=== PATIENT | female | born 1960 | race Caucasian/White ===

== ENCOUNTER 2017-09-08 01:38 | Inpatient (IN) ==
[2017-09-08] MEDS ORDERED: SODIUM CHLORIDE 0.9% 1,000 ML IV STA (02:11)
[2017-09-08] MEDS ORDERED: ONDANSETRON 4 MG/2 ML VIAL IV STA (02:11)
[2017-09-08] MEDS ORDERED: ONDANSETRON 4 MG/2 ML VIAL ONE (02:15)
[2017-09-08 02:55] LABS: Basophils % 0.2 % (0.0-0.8); Hemoglobin 14.6 GM/DL (12.0-16.0); Immature Granulocytes % 0.7 %; Immature Granulocytes Absolute 0.15 #; Lymphocytes # 1.1 10*3/uL (1.4-4.0); Lymphocytes % 4.7 % (21.3-54.2); Mean Corpuscular HGB Conc 33.2 GM/DL (32-36); Mean Corpuscular Hemoglobin 30 PG (27-34); Mean Corpuscular Volume 89.6 FL (87-102); Monocytes # 1.1 10*3/uL (0.11-0.8); Neutrophils # 20.3 10*3/uL (1.4-7.4); Neutrophils % 89.4 % (38.7-73.9); Platelet Count 242 T/CUMM (130-400); Red Blood Count 4.91 MC/CUMM (3.8-5.5); Red Cell Distribution Width 13.2 % (9.3-17.3); White Blood Count 22.7 T/CUMM (4-12)
[2017-09-08 03:14] LABS: Albumin 3.8 G/DL (3.4-5.0); Bilirubin,Total 0.8 MG/DL (0.2-1.0); Calcium 9.1 MG/DL (8.5-10.1); Osmolality,Calculated 278.7 MOS/KG (273-304); Potassium 3.7 MMOL/L (3.5-5.1); Total Protein 7.1 G/DL (6.4-8.3)
[2017-09-08 04:17] LABS: Band Neutrophils 6 % (0-10); Lymphocytes 8 % (20-55); Segmented Neutrophils 85 % (50-85)
[2017-09-08 04:18] LABS: Platelet Estimate Normal; Total Cells Counted 100
[2017-09-08] MEDS ORDERED: metroNIDAZOLE INJ 500 MG in PREMIX 1 EACH IV STA (04:33)
[2017-09-08] MEDS ORDERED: CIPROFLOXACIN INJ 400 MG in PREMIX 1 EACH IV STA (04:33)
[2017-09-08] MEDS ORDERED: metroNIDAZOLE 500 MG/100 ML PREMIX IV ONE (04:42)
[2017-09-08] MEDS ORDERED: CIPROFLOXACIN 400 MG/200 ML PREMIX IV ONE (04:42)
[2017-09-08 05:25] LABS: Apearance,Urine Slightly Hazy (Clear); Bacteria,Urine Occasional /HPF (Few); Blood, Urine Moderate mg/dL (Negative); Glucose,Urine (UA) Negative (Negative); Hyaline Casts,Urine 4 /LPF (0-3); Ketones,Urine 5 mg/dL (Negative); Mucus,Urine Occasional /LPF (Occasional); Nitrite,Urine Negative (Negative); Protein,Urine Negative; RBC,Urine 36 /HPF (0-4); Squamous Epithelial Cell,Urine Few /HPF (0-10); Urine Color Amber (Yellow); Urine Specific Gravity 1.019 (1.001-1.035); WBC,Urine 1 /HPF (0-6)
[2017-09-08 05:26] LABS: Bilirubin,Urine Small mg/dL (Negative)
[2017-09-08] MEDS ORDERED: ACETAMINOPHEN 325 MG TABLET PO PRN (05:44)
[2017-09-08] MEDS ORDERED: ONDANSETRON 4 MG/2 ML VIAL IV PRN (05:44)
[2017-09-08] MEDS: SODIUM CHLORIDE 0.9% 1,000 ML IV SCH ×2 (06:41→18:45)
[2017-09-08] MEDS: DOCUSATE SODIUM 100 MG CAPSULE PO SCH ×2 (08:44→20:16)
[2017-09-08] MEDS: LEVOTHYROXINE 50 MCG TABLET PO SCH (08:44)
[2017-09-08] MEDS: PANTOPRAZOLE 40 MG TABLET PO SCH (08:44)
[2017-09-08] MEDS ORDERED: HYOSCYAMINE 0.125 MG TABLET PO ONE (09:00)
[2017-09-08] MEDS: CETIRIZINE 10 MG TABLET PO SCH (09:28)
[2017-09-08] MEDS: AZELASTINE NASAL 137 MCG/SPRAY 30 ML BOTTLE BOTH NARES SCH ×2 (10:56→20:16)
[2017-09-08] MEDS: PIPERACILLIN/TAZOBACTAM 3,375 MG in SODIUM CHLORIDE 0.9% 100 ML IV SCH ×2 (10:56→18:46)
[2017-09-08] MEDS ORDERED: LOPERAMIDE 2 MG CAPSULE PO PRN (12:39)
[2017-09-08] MEDS: LACTOBACILLUS ACIDOPHILUS/BULGARICUS CAPLET PO SCH (13:40)
[2017-09-08] MEDS ORDERED: FLUoxetine 10 MG CAPSULE PO SCH (21:00)
[2017-09-08] MEDS ORDERED: SPRINTEC PO SCH (21:00)
[2017-09-09] MEDS: PIPERACILLIN/TAZOBACTAM 3,375 MG in SODIUM CHLORIDE 0.9% 100 ML IV SCH ×2 (00:33→09:20)
[2017-09-09 05:06] LABS: Basophils % 0.6 % (0.0-0.8); Hemoglobin 12.9 GM/DL (12.0-16.0); Immature Granulocytes % 0.3 %; Immature Granulocytes Absolute 0.02 #; Lymphocytes # 2.3 10*3/uL (1.4-4.0); Lymphocytes % 34.2 % (21.3-54.2); Mean Corpuscular HGB Conc 33.1 GM/DL (32-36); Mean Corpuscular Hemoglobin 30 PG (27-34); Mean Corpuscular Volume 90.3 FL (87-102); Mean Platelet Volume 10.2 FL (9.6-12.0); Monocytes # 0.5 10*3/uL (0.11-0.8); Monocytes % 8.1 % (1.7-12.7); Neutrophils # 3.8 10*3/uL (1.4-7.4); Neutrophils % 56.8 % (38.7-73.9); Platelet Count 244 T/CUMM (130-400); Red Blood Count 4.32 MC/CUMM (3.8-5.5); Red Cell Distribution Width 13.7 % (9.3-17.3); White Blood Count 6.7 T/CUMM (4-12)
[2017-09-09] MEDS: LEVOTHYROXINE 50 MCG TABLET PO SCH (05:32)
[2017-09-09 05:44] LABS: Calcium 8.1 MG/DL (8.5-10.1); Potassium 4.2 MMOL/L (3.5-5.1)
[2017-09-09] MEDS: AZELASTINE NASAL 137 MCG/SPRAY 30 ML BOTTLE BOTH NARES SCH (09:01)
[2017-09-09] MEDS: LACTOBACILLUS ACIDOPHILUS/BULGARICUS CAPLET PO SCH (09:01)
[2017-09-09] MEDS: PANTOPRAZOLE 40 MG TABLET PO SCH (09:02)
[2017-09-09] MEDS: CETIRIZINE 10 MG TABLET PO SCH (09:02)
[2017-09-09] MEDS: DOCUSATE SODIUM 100 MG CAPSULE PO SCH (09:02)
[2017-09-09 09:35] VITALS: BP 125/68
== END 2017-09-09 10:08 | disposition home or self-care (01) | DRG 392 ==
LOC: N.ED 01:38 → N.EDINP 05:44 → N.2E 06:20
PROVIDERS: ADMIT Family Medicine; ATTEND Family Medicine

== ENCOUNTER 2018-09-21 05:37 | Inpatient (IN) ==
[2018-09-21] MEDS ORDERED: SODIUM CHLORIDE 0.9% 1,000 ML IV STA (06:20)
[2018-09-21] MEDS ORDERED: PROMETHAZINE 25 MG/1 ML VIAL IM STA (06:20)
[2018-09-21] MEDS ORDERED: ONDANSETRON 4 MG/2 ML VIAL IV STA (06:20)
[2018-09-21] MEDS ORDERED: cefTRIAXone 1,000 MG in SODIUM CHLORIDE 0.9% 100 ML IV STA (06:49)
[2018-09-21 07:05] LABS: Albumin 3.1 G/DL (3.4-5.0); Bilirubin,Total 0.4 MG/DL (0.2-1.0); Calcium 7.8 MG/DL (8.5-10.1); Osmolality,Calculated 277.4 MOS/KG (273-304); Potassium 3.5 MMOL/L (3.5-5.1)
[2018-09-21 07:11] LABS: Basophils # 0.1 10*3/uL (0.0-0.2); Basophils % 0.3 % (0.0-0.8); Hemoglobin 14.7 GM/DL (12.0-16.0); Immature Granulocytes % 0.5 %; Immature Granulocytes Absolute 0.07 #; Lymphocytes % 6.7 % (21.3-54.2); Mean Corpuscular HGB Conc 32.7 GM/DL (32-36); Mean Corpuscular Hemoglobin 30 PG (27-34); Mean Corpuscular Volume 90.2 FL (87-102); Mean Platelet Volume 10.6 FL (9.6-12.0); Monocytes # 1.2 10*3/uL (0.11-0.8); Monocytes % 8.1 % (1.7-12.7); Neutrophils # 12.9 10*3/uL (1.4-7.4); Neutrophils % 84.4 % (38.7-73.9); Platelet Count 277 T/CUMM (130-400); Red Blood Count 4.99 MC/CUMM (3.8-5.5); Red Cell Distribution Width 13.4 % (9.3-17.3); White Blood Count 15.3 T/CUMM (4-12)
[2018-09-21] MEDS ORDERED: KETOROLAC 30 MG/1 ML VIAL IV STA (07:58)
[2018-09-21 09:23] LABS: Apearance,Urine CLOUDY (Clear); Bacteria,Urine Occasional /HPF (Few); Bilirubin,Urine Negative (Negative); Blood, Urine Large mg/dL (Negative); Glucose,Urine (UA) Negative (Negative); Ketones,Urine 80 mg/dL (Negative); Mucus,Urine Occasional /LPF (Occasional); Nitrite,Urine Positive (Negative); Protein,Urine 30 MG/DL; RBC,Urine 38 /HPF (0-4); Squamous Epithelial Cell,Urine Moderate /HPF (0-10); Urine Color Amber (Yellow); Urine Specific Gravity 1.014 (1.001-1.035); WBC,Urine 228 /HPF (0-6)
[2018-09-21] MEDS ORDERED: LORazepam 2 MG/1 ML VIAL ONE (10:39)
[2018-09-21] MEDS ORDERED: LORazepam 2 MG/1 ML VIAL IV STA (10:39)
[2018-09-21] MEDS ORDERED: PROMETHAZINE 25 MG/1 ML VIAL IM PRN (11:28)
[2018-09-21] MEDS ORDERED: DOCUSATE SODIUM 100 MG CAPSULE PO SCH (11:28)
[2018-09-21] MEDS: SODIUM CHLORIDE 0.9% 1,000 ML IV SCH ×2 (12:15→18:07)
[2018-09-21] MEDS: PANTOPRAZOLE 40 MG TABLET PO SCH (12:16)
[2018-09-21] MEDS: LOPERAMIDE 2 MG CAPSULE PO PRN (16:23)
[2018-09-21] MEDS: MONTELUKAST 10 MG TABLET PO SCH (20:37)
[2018-09-21] MEDS ORDERED: LORazepam 2 MG/1 ML VIAL IV PRN (21:25)
[2018-09-21] MEDS ORDERED: MEROPENEM 1,000 MG in SODIUM CHLORIDE 0.9% 100 ML IV SCH (22:00)
[2018-09-22] MEDS: SODIUM CHLORIDE 0.9% 1,000 ML IV SCH ×2 (02:30→11:06)
[2018-09-22] MEDS ORDERED: HEPARIN DRIP 25,000 UNITS/500 ML PREMIX IV SCH (03:30)
[2018-09-22 05:04] LABS: Basophils % 0.4 % (0.0-0.8); Hematocrit 37.2 VOL% (35.7-47.0); Hemoglobin 12.1 GM/DL (12.0-16.0); Immature Granulocytes % 0.5 %; Immature Granulocytes Absolute 0.04 #; Mean Corpuscular HGB Conc 32.5 GM/DL (32-36); Mean Corpuscular Hemoglobin 30 PG (27-34); Mean Platelet Volume 10.5 FL (9.6-12.0); Monocytes # 1.2 10*3/uL (0.11-0.8); Monocytes % 14.7 % (1.7-12.7); Neutrophils # 4.7 10*3/uL (1.4-7.4); Neutrophils % 59.4 % (38.7-73.9); Platelet Count 262 T/CUMM (130-400); Red Blood Count 4.09 MC/CUMM (3.8-5.5); Red Cell Distribution Width 13.6 % (9.3-17.3)
[2018-09-22 05:36] LABS: Albumin 2.6 G/DL (3.4-5.0); Bilirubin,Total 0.6 MG/DL (0.2-1.0); Calcium 6.9 MG/DL (8.5-10.1); Osmolality,Calculated 278.3 MOS/KG (273-304); Potassium 2.9 MMOL/L (3.5-5.1); Total Protein 5.6 G/DL (6.4-8.3)
[2018-09-22] MEDS: LEVOTHYROXINE 50 MCG TABLET PO SCH (05:58)
[2018-09-22 06:04] LABS: Atypical Lymphocytes Few; Band Neutrophils 8 % (0-10); Eosinophils 2 % (0-10); Hypochromasia 1+; Lymphocytes 23 % (20-55); Ovalocytes Slight; Platelet Estimate Adequate; Segmented Neutrophils 52 % (50-85); Total Cells Counted 100
[2018-09-22] MEDS ORDERED: POTASSIUM CHLORIDE 20 MEQ TABLET PO ONE ×2 (06:15→15:44)
[2018-09-22] MEDS: ACETAMINOPHEN 325 MG TABLET PO PRN ×3 (08:17→20:29)
[2018-09-22] MEDS: LACTOBACILLUS ACIDOPHILUS/BULGARICUS CAPLET PO SCH (08:18)
[2018-09-22] MEDS: PANTOPRAZOLE 40 MG TABLET PO SCH (08:18)
[2018-09-22] MEDS ORDERED: MAGNESIUM SULF RIDER 2 GM in PREMIX 1 EACH IV ONE (10:00)
[2018-09-22] MEDS ORDERED: POTASSIUM CHLORIDE RIDER 10 MEQ in PREMIX 1 EACH IV ONE ×2 (14:05→18:00)
[2018-09-22] MEDS: LOPERAMIDE 2 MG CAPSULE PO PRN (14:05)
[2018-09-22] MEDS: POTASSIUM CHLORIDE RIDER 10 MEQ in PREMIX 1 EACH IV PRN ×3 (15:45→17:11)
[2018-09-22] MEDS ORDERED: MORPHINE 4 MG/1 ML VIAL IV PRN ×2 (15:46)
[2018-09-22] MEDS ORDERED: KETOROLAC 30 MG/1 ML VIAL IV ONE (15:46)
[2018-09-22] MEDS: FLUCONAZOLE 200 MG TABLET PO SCH (16:14)
[2018-09-22] MEDS: PIPERACILLIN/TAZOBACTAM 3,375 MG in SODIUM CHLORIDE 0.9% 100 ML IV SCH (18:40)
[2018-09-22] MEDS: MONTELUKAST 10 MG TABLET PO SCH (20:22)
[2018-09-22] MEDS: ONDANSETRON 4 MG/2 ML VIAL IV PRN (20:27)
[2018-09-22] MEDS: KETOROLAC 15 MG/1 ML VIAL IV PRN (21:46)
[2018-09-23] MEDS: SODIUM CHLORIDE 0.9% 1,000 ML IV SCH ×2 (00:46→21:24)
[2018-09-23] MEDS: PIPERACILLIN/TAZOBACTAM 3,375 MG in SODIUM CHLORIDE 0.9% 100 ML IV SCH ×3 (00:47→17:32)
[2018-09-23] MEDS: POTASSIUM CHLORIDE RIDER 10 MEQ in PREMIX 1 EACH IV PRN ×2 (04:01→05:06)
[2018-09-23 04:40] LABS: Basophils % 0.3 % (0.0-0.8); Eosinophils % 0.1 % (0.00-10.9); Hematocrit 37.6 VOL% (35.7-47.0); Hemoglobin 12.1 GM/DL (12.0-16.0); Immature Granulocytes % 0.6 %; Immature Granulocytes Absolute 0.06 #; Lymphocytes # 2.2 10*3/uL (1.4-4.0); Lymphocytes % 22.2 % (21.3-54.2); Mean Corpuscular HGB Conc 32.2 GM/DL (32-36); Mean Corpuscular Hemoglobin 29 PG (27-34); Mean Platelet Volume 10.1 FL (9.6-12.0); Monocytes # 1.1 10*3/uL (0.11-0.8); Monocytes % 11.2 % (1.7-12.7); Neutrophils # 6.4 10*3/uL (1.4-7.4); Neutrophils % 65.6 % (38.7-73.9); Platelet Count 281 T/CUMM (130-400); Red Blood Count 4.13 MC/CUMM (3.8-5.5); Red Cell Distribution Width 13.5 % (9.3-17.3); White Blood Count 9.8 T/CUMM (4-12)
[2018-09-23 05:07] LABS: Lymphocytes 22 % (20-55); Platelet Estimate Normal; Segmented Neutrophils 75 % (50-85); Total Cells Counted 100
[2018-09-23 05:08] LABS: Albumin 2.5 G/DL (3.4-5.0); Bilirubin,Total 0.6 MG/DL (0.2-1.0); Potassium 3.5 MMOL/L (3.5-5.1); Total Protein 5.4 G/DL (6.4-8.3)
[2018-09-23] MEDS: LEVOTHYROXINE 50 MCG TABLET PO SCH (06:42)
[2018-09-23] MEDS: KETOROLAC 15 MG/1 ML VIAL IV PRN (08:19)
[2018-09-23] MEDS ORDERED: TISSUE ADHESIVE 1 EACH APPLICATOR TOP ONE (08:42)
[2018-09-23] MEDS ORDERED: BUPIVACAINE 0.5% 50 ML VIAL ONE (08:42)
[2018-09-23] MEDS ORDERED: LIDOCAINE 1%/EPI INJ 20 ML VIAL ONE (08:42)
[2018-09-23] MEDS ORDERED: SCOPOLAMINE 1.5 MG PATCH TRANSDERM ONE ×2 (09:15→12:00)
[2018-09-23] MEDS ORDERED: PROPOFOL 200 MG/20 ML VIAL IV ONE (10:56)
[2018-09-23] MEDS ORDERED: GLYCOPYRROLATE 0.4 MG/2 ML VIAL ONE (10:57)
[2018-09-23] MEDS ORDERED: MIDAZOLAM 2 MG/2 ML VIAL ONE (10:57)
[2018-09-23] MEDS ORDERED: ACETAMINOPHEN 1,000 MG/100 ML VIAL IV ONE (10:57)
[2018-09-23] MEDS ORDERED: SEVOFLURANE 1 UNIT/15 MINUTE INH ONE (10:57)
[2018-09-23] MEDS ORDERED: ROCURONIUM 100 MG/10 ML VIAL IV ONE (10:57)
[2018-09-23] MEDS ORDERED: NEOSTIGMINE 10 MG/10 ML VIAL ONE (10:57)
[2018-09-23] MEDS ORDERED: ONDANSETRON 4 MG/2 ML VIAL ONE (10:57)
[2018-09-23] MEDS ORDERED: fentaNYL 100 MCG/2 ML VIAL ONE (10:57)
[2018-09-23] MEDS: PANTOPRAZOLE 40 MG TABLET PO SCH (13:43)
[2018-09-23] MEDS: LACTOBACILLUS ACIDOPHILUS/BULGARICUS CAPLET PO SCH (13:43)
[2018-09-23] MEDS: LOPERAMIDE 2 MG CAPSULE PO PRN (13:43)
[2018-09-23] MEDS: FLUCONAZOLE 200 MG TABLET PO SCH (13:43)
[2018-09-23] MEDS: MONTELUKAST 10 MG TABLET PO SCH (20:10)
[2018-09-23] MEDS: ACETAMINOPHEN 325 MG TABLET PO PRN (21:21)
[2018-09-24] MEDS: PIPERACILLIN/TAZOBACTAM 3,375 MG in SODIUM CHLORIDE 0.9% 100 ML IV SCH ×2 (01:16→08:32)
[2018-09-24] MEDS: LEVOTHYROXINE 50 MCG TABLET PO SCH (06:01)
[2018-09-24 07:56] VITALS: BP 118/65
[2018-09-24] MEDS: SODIUM CHLORIDE 0.9% 1,000 ML IV SCH ×2 (08:33→10:54)
[2018-09-24] MEDS: PANTOPRAZOLE 40 MG TABLET PO SCH (08:35)
[2018-09-24] MEDS: LACTOBACILLUS ACIDOPHILUS/BULGARICUS CAPLET PO SCH (08:35)
[2018-09-24] MEDS: FLUCONAZOLE 200 MG TABLET PO SCH (08:37)
[2018-09-24] MEDS: ONDANSETRON 4 MG/2 ML VIAL IV PRN (10:07)
== END 2018-09-24 11:10 | disposition home or self-care (01) | DRG 418 ==
LOC: N.ED 05:37 → N.EDINP 08:23 → N.2E 11:59
PROVIDERS: ADMIT Family Medicine; ATTEND Family Medicine
PROC: LAPCHOL (2018-09-23 09:30)

== ENCOUNTER 2021-07-29 22:15 | Inpatient (IN) ==
[2021-07-29] MEDS ORDERED: HYDROmorphone 2 MG/1 ML VIAL IV STA (22:45)
[2021-07-29] MEDS ORDERED: ONDANSETRON 4 MG/2 ML VIAL IV STA (22:45)
[2021-07-29] MEDS ORDERED: MEPERIDINE 50 MG/1 ML VIAL IM STA (22:45)
[2021-07-29] MEDS ORDERED: PROMETHAZINE 25 MG/1 ML VIAL IM STA (22:45)
[2021-07-29] MEDS ORDERED: PANTOPRAZOLE 40 MG VIAL IV STA (22:45)
[2021-07-29] MEDS ORDERED: SODIUM CHLORIDE 0.9% 1,000 ML IV STA (22:45)
[2021-07-29 23:26] LABS: Basophils # 0.1 10*3/uL (0.0-0.2); Basophils % 0.4 % (0.0-0.8); Hematocrit 41.4 VOL% (35.7-47.0); Hemoglobin 13.9 GM/DL (12.0-16.0); Immature Granulocytes % 0.5 %; Immature Granulocytes Absolute 0.06 #; Lymphocytes # 2.1 10*3/uL (1.4-4.0); Lymphocytes % 17.1 % (21.3-54.2); Mean Corpuscular HGB Conc 33.6 GM/DL (32-36); Mean Corpuscular Volume 89.4 FL (87-102); Mean Platelet Volume 10.5 FL (9.6-12.0); Monocytes % 5.1 % (1.7-12.7); Neutrophils % 76.9 % (38.7-73.9); Platelet Count 286 T/CUMM (130-400); Red Blood Count 4.63 MC/CUMM (3.8-5.5); Red Cell Distribution Width 12.7 % (9.3-17.3); White Blood Count 12.2 T/CUMM (4-12)
[2021-07-29 23:43] LABS: Albumin 4.2 G/DL (3.4-5.0); Bilirubin,Total 0.4 MG/DL (0.20-1.00); Calcium 9.6 MG/DL (8.5-10.1); Osmolality,Calculated 277.7 MOS/KG (273-304); Potassium 3.7 MMOL/L (3.5-5.1); Total Protein 7.8 G/DL (6.4-8.2)
[2021-07-30] MEDS ORDERED: ONDANSETRON 4 MG/2 ML VIAL IV PRN (00:40)
[2021-07-30] MEDS ORDERED: ACETAMINOPHEN 325 MG TABLET PO PRN (00:40)
[2021-07-30] MEDS: HYDROmorphone 2 MG/1 ML VIAL IV PRN ×2 (01:15→05:11)
[2021-07-30] MEDS: PIPERACILLIN/TAZOBACTAM 3,375 MG in SODIUM CHLORIDE 0.9% 100 ML IV SCH ×2 (01:20→09:11)
[2021-07-30] MEDS: SODIUM CHLORIDE 0.9% 1,000 ML IV SCH ×2 (01:20→10:05)
[2021-07-30 01:38] LABS: Bilirubin,Urine Negative (Negative); Blood, Urine Moderate mg/dL (Negative); Glucose,Urine (UA) Negative (Negative); Ketones,Urine 20 mg/dL (Negative); Nitrite,Urine Negative (Negative); Protein,Urine Negative; RBC,Urine 3 /HPF (0-4); Squamous Epithelial Cell,Urine Few /HPF (0-10); Urine Appearance Slightly Hazy (Clear); Urine Color Yellow (Yellow); Urine Specific Gravity 1.009 (1.001-1.035); Urine Urobilinogen < 2.0 EU/DL (<2.0)
[2021-07-30] MEDS ORDERED: KETOROLAC 30 MG/1 ML VIAL ONE (01:58)
[2021-07-30] MEDS ORDERED: KETOROLAC 30 MG/1 ML VIAL IV STA (01:58)
[2021-07-30 06:48] LABS: Basophils % 0.3 % (0.0-0.8); Hematocrit 40.7 VOL% (35.7-47.0); Hemoglobin 13.1 GM/DL (12.0-16.0); Immature Granulocytes % 0.3 %; Immature Granulocytes Absolute 0.03 #; Lymphocytes # 1.7 10*3/uL (1.4-4.0); Lymphocytes % 17.2 % (21.3-54.2); Mean Corpuscular HGB Conc 32.2 GM/DL (32-36); Mean Corpuscular Volume 93.1 FL (87-102); Mean Platelet Volume 10.2 FL (9.6-12.0); Monocytes % 5.7 % (1.7-12.7); Neutrophils % 76.5 % (38.7-73.9); Platelet Count 259 T/CUMM (130-400); Red Blood Count 4.37 MC/CUMM (3.8-5.5); Red Cell Distribution Width 12.7 % (9.3-17.3); White Blood Count 10.1 T/CUMM (4-12)
[2021-07-30 07:23] LABS: Albumin 3.3 G/DL (3.4-5.0); Bilirubin,Total 0.7 MG/DL (0.20-1.00); Calcium 8.2 MG/DL (8.5-10.1); Osmolality,Calculated 282.3 MOS/KG (273-304); Potassium 3.8 MMOL/L (3.5-5.1); Total Protein 6.8 G/DL (6.4-8.2)
[2021-07-30] MEDS ORDERED: FAMOTIDINE 20 MG TABLET PO ONE (07:32)
[2021-07-30] MEDS ORDERED: SCOPOLAMINE 1.5 MG PATCH TRANSDERM ONE (07:32)
[2021-07-30] MEDS: PANTOPRAZOLE 40 MG VIAL IV SCH (09:12)
[2021-07-30] MEDS ORDERED: propofoL 200 MG/20 ML VIAL IV ONE (09:41)
[2021-07-30] MEDS ORDERED: ROCURONIUM 50 MG/5 ML VIAL IV ONE (09:41)
[2021-07-30] MEDS ORDERED: fentaNYL 100 MCG/2 ML VIAL ONE (09:41)
[2021-07-30] MEDS ORDERED: ONDANSETRON 4 MG/2 ML VIAL ONE (09:41)
[2021-07-30] MEDS ORDERED: MIDAZOLAM 2 MG/2 ML VIAL ONE (09:41)
[2021-07-30] MEDS ORDERED: LIDOCAINE 2% 5 ML VIAL ONE (09:41)
[2021-07-30] MEDS ORDERED: DEXAMETHASONE 4 MG/1 ML VIAL ONE (09:45)
[2021-07-30] MEDS ORDERED: BUPIVACAINE MPF 0.25% 30 ML VIAL ONE ×2 (09:45→10:13)
[2021-07-30] MEDS: LACTATED RINGERS 1,000 ML IV SCH ×4 (10:03→22:53)
[2021-07-30] MEDS ORDERED: LIDOCAINE 1%/EPI INJ 20 ML VIAL ONE (10:13)
[2021-07-30] MEDS ORDERED: TISSUE ADHESIVE 1 EACH APPLICATOR TOP ONE (10:13)
[2021-07-30] MEDS ORDERED: ePHEDrine 50 MG/ML VIAL ONE (11:19)
[2021-07-30] MEDS ORDERED: GLYCOPYRROLATE 0.4 MG/2 ML VIAL ONE (11:31)
[2021-07-30] MEDS ORDERED: LACTATED RINGERS 1,000 ML IV ONE (11:39)
[2021-07-30] MEDS ORDERED: SUGAMMADEX 200 MG/2 ML VIAL IV ONE (12:17)
[2021-07-30] MEDS ORDERED: SEVOFLURANE 1 UNIT/15 MINUTE INH ONE (12:32)
[2021-07-30] MEDS ORDERED: CETIRIZINE 10 MG TABLET PO PRN (14:09)
[2021-07-30] MEDS ORDERED: SIMETHICONE CHEW 125 MG TABLET PO PRN (17:43)
[2021-07-31] MEDS: LACTATED RINGERS 1,000 ML IV SCH (06:27)
[2021-07-31 07:36] VITALS: BP 100/53
[2021-07-31] MEDS: PANTOPRAZOLE 40 MG VIAL IV SCH (08:19)
[2021-07-31] MEDS ORDERED: FLUoxetine 10 MG CAPSULE PO SCH (09:00)
[2021-08-01] MEDS ORDERED: PANTOPRAZOLE 40 MG TABLET PO SCH (06:30)
== END 2021-07-31 10:25 | disposition home or self-care (01) | DRG 337 ==
LOC: N.ED 22:15 → N.EDINP 07-30 00:33
PROVIDERS: ADMIT Surgery; ATTEND Surgery